=== PATIENT | male | born 1975 | race Caucasian/White ===

== ENCOUNTER 2023-04-17 23:46 | Emergency (ER) | payer SELFPAY ==
[2023-04-18] MEDS ORDERED: Ibuprofen 400 MG TAB ONE (00:08)
== END 2023-04-18 00:11 | disposition home or self-care (01) ==
LOC: MADERS 23:46
DX: M10.9 Gout, unspecified (principal); F17.220 Nicotine dependence, chewing tobacco, uncomplicated
CPT/HCPCS: 99283

== ENCOUNTER 2024-03-24 03:20 | Emergency (ER) | payer SELFPAY ==
[2024-03-24 03:49] LABS: #Basophils 0.1 thou/uL (0.0-0.2); #Eosinphils 0.4 thou/uL (0.0-0.7); #Lymphocytes 2.3 thou/uL (1.20-3.40); #Monocytes 0.5 thou/uL (0.11-0.59); #Neutrophils 3.7 thou/uL (1.40-6.50); %Basophils 1.2 % (0.0-1.0); %Eosinophils 6.1 % (0.0-10.0); %Lymphocytes 32.6 % (21.0-51.0); %Monocytes 7.4 % (0.0-10.0); %Neutrophils 52.7 % (42.0-75.0); Hematocrit 45.3 % (42.0-52.0); Hemoglobin 15.3 g/dL (14.0-18.0); Mean Corpuscular HGB CONC 33.8 g/dL (32.0-36.0); Mean Corpuscular Hemoglobin 29.9 pg (27.0-31.0); Mean Corpuscular Volume 88.5 fl (78.0-98.0); Mean Platelet Volume 8.2 fL (7.4-10.4); Platelet Count 201 10x3/uL (130-400); RBC Distribution Width 12.2 % (11.5-14.5); Red Blood Cell (RBC) Count 5.12 mill/uL (4.70-6.10)
[2024-03-24 04:17] LABS: ALT (SGPT) 34 U/L (8-55); AST (SGOT) 27 U/L (5-34); Albumin 4.1 g/dL (3.5-5.0); Alkaline Phosphatase 74 U/L (40-110); Anion Gap 17 mmol/L (10-20); BUN (Urea Nitrogen) 12 mg/dL (8.9-20.6); Bilirubin, Total 0.6 mg/dL (0.2-1.2); Calc. Creatinine Clearance 0 mL/min (70-130); Calcium 8.7 mg/dL (7.8-10.44); Carbon Dioxide 24 mmol/L (22-29); Chloride 104 mmol/L (98-107); Estimated GFR 107; Globulin 3.3 g/dL (2.4-3.5); Glucose 104 mg/dL (70-105); Potassium 3.9 mmol/L (3.5-5.1); Protein, Total 7.4 g/dL (6.0-8.3); Sodium 141 mmol/L (136-145)
[2024-03-24] MEDS ORDERED: Ipratropium/Albuterol 3 ML NEB ONE (04:20)
[2024-03-24] MEDS ORDERED: Dexamethasone 10 MG/ML VIAL ONE (04:20)
[2024-03-24] MEDS ORDERED: hydrALAZINE 20 MG/ML VIAL ONE (04:20)
== END 2024-03-24 05:30 | disposition home or self-care (01) ==
LOC: MADERS 03:20
DX: R06.2 Wheezing (principal); I10 Essential (primary) hypertension; F17.220 Nicotine dependence, chewing tobacco, uncomplicated
CPT/HCPCS: 71045; 80053; 85025; 93005; 96374; 96375; J0360; J1100; J7620

== ENCOUNTER 2024-06-17 21:20 | Emergency (ER) | payer SELFPAY ==
[2024-06-17] MEDS ORDERED: Amoxicillin/Potassium Clav 875 MG TAB ONE (21:40)
[2024-06-17] MEDS ORDERED: Bupivacaine PF 0.5% 30 ML VIAL ONE (21:41)
[2024-06-17] MEDS ORDERED: Lidocaine 1% w/Epinephrine 1:100K 20 ML VIAL ONE (21:41)
== END 2024-06-17 22:04 | disposition home or self-care (01) ==
LOC: MADERS 21:20
DX: K08.89 Other specified disorders of teeth and supporting structures (principal); I10 Essential (primary) hypertension; Z86.73 Personal history of transient ischemic attack (TIA), and cerebral infarction without residual deficits; Z87.891 Personal history of nicotine dependence
CPT/HCPCS: 64400; J0665

== ENCOUNTER 2024-07-22 21:21 | Emergency (ER) | payer SELFPAY ==
[2024-07-22] MEDS ORDERED: hydrALAZINE 10 MG TAB ONE (21:55)
== END 2024-07-22 22:36 | disposition home or self-care (01) ==
LOC: MADERS 21:21
DX: I10 Essential (primary) hypertension (principal); Z87.891 Personal history of nicotine dependence
CPT/HCPCS: 99283

== ENCOUNTER 2024-07-23 07:02 | Emergency (ER) | payer SELFPAY ==
[2024-07-23] MEDS ORDERED: Fluorescein Opthalmic Strip ONE (07:34)
[2024-07-23] MEDS ORDERED: Tetracaine 0.5% PF 4 ML BOT ONE (07:35)
[2024-07-23] MEDS ORDERED: Amlodipine 5 MG TAB ONE (07:37)
[2024-07-23] MEDS ORDERED: Lisinopril 10 MG TAB ONE (07:58)
[2024-07-23] MEDS ORDERED: Ketorolac Tromethamine 30 MG (1 mL) VIAL ONE (07:58)
[2024-07-23 08:21] LABS: #Basophils 0.1 thou/uL (0.0-0.2); #Eosinophils 0.3 thou/uL (0.0-0.7); #Lymphocytes 2.2 thou/uL (1.20-3.40); #Monocytes 0.5 thou/uL (0.11-0.59); %Basophils 0.8 % (0.0-1.0); %Eosinophils 3.9 % (0.0-10.0); %Lymphocytes 26.7 % (21.0-51.0); %Monocytes 6.1 % (0.0-10.0); %Neutrophils 62.6 % (42.0-75.0); Hematocrit 49.1 % (42.0-52.0); Hemoglobin 16.8 g/dL (14.0-18.0); Mean Corpuscular HGB CONC 34.2 g/dL (32.0-36.0); Mean Corpuscular Hemoglobin 30.3 pg (27.0-31.0); Mean Corpuscular Volume 88.7 fl (78.0-98.0); Platelet Count 287 10x3/uL (130-400); Red Blood Cell (RBC) Count 5.54 mill/uL (4.70-6.10); White Blood Cell (WBC) Count 8.1 10x3/uL (4.8-10.8)
[2024-07-23 08:28] LABS: Anion Gap 15 mmol/L (10-20); BUN (Urea Nitrogen) 13 mg/dL (8.9-20.6); Calc. Creatinine Clearance 0 mL/min (70-130); Calcium 9.4 mg/dL (7.8-10.44); Carbon Dioxide 25 mmol/L (22-29); Chloride 101 mmol/L (98-107); Estimated GFR 99; Glucose 135 mg/dL (70-105); Potassium 4.3 mmol/L (3.5-5.1); Sodium 137 mmol/L (136-145)
== END 2024-07-23 08:45 | disposition home or self-care (01) ==
LOC: MADERS 07:02
DX: I10 Essential (primary) hypertension (principal); G44.009 Cluster headache syndrome, unspecified, not intractable; Z87.891 Personal history of nicotine dependence
CPT/HCPCS: 36415; 80048; 85025; 96372; 99283; J1885

== ENCOUNTER 2024-10-03 09:12 | Emergency (ER) | payer SELFPAY ==
[2024-10-03] MEDS ORDERED: methylPREDNISolone Sod Succ/PF 125 MG/2 ML VIAL ONE (09:42)
[2024-10-03] MEDS ORDERED: Ketorolac Tromethamine 30 MG (1 mL) VIAL ONE (09:42)
== END 2024-10-03 10:07 | disposition home or self-care (01) ==
LOC: MADERS 09:12
DX: M10.9 Gout, unspecified (principal); I10 Essential (primary) hypertension; Z87.891 Personal history of nicotine dependence; Z86.73 Personal history of transient ischemic attack (TIA), and cerebral infarction without residual deficits
CPT/HCPCS: 96372; 99283; J1885; J2919